=== PATIENT | female | born 1980 | race African-American/Black ===

== ENCOUNTER 2016-11-02 13:45 | Emergency (ER) | payer OTHER ==
[~2016-11-02] VITALS: Ht 175.3 cm; Wt 68.4 kg
[2016-11-02 14:53] LABS: BASO % 0.5 % (0.0-1.0); EOS # 0.2 K/mm3 (0.0-0.50); EOS % 3.1 % (0.0-3.0); LARGE UNSTAINED CELL # 0.1 K/mm3 (0.0-0.4); LARGE UNSTAINED CELL % 1.8 % (0.0-4.0); LYMPH # 1.8 K/mm3 (1.5-4.5); LYMPH % 32.1 % (24.0-44.0); MEAN CORPUSCULAR HEMOGLOBIN 27.6 pg (27.0-33.0); MEAN CORPUSCULAR HGB CONC 32.7 g/dl (32.0-36.5); MEAN CORPUSCULAR VOLUME 84.4 fl (80.0-96.0); MONO # 0.3 K/mm3 (0.0-0.8); MONO % 5.5 % (0.0-5.0); PLATELET COUNT, AUTOMATED 285 k/mm3 (150-450); RED CELL DISTRIBUTION WIDTH 12.9 % (11.5-14.5); WHITE BLOOD COUNT 5.2 K/mm3 (4.0-10.0)
[2016-11-02 15:05] LABS: ALBUMIN/GLOBULIN RATIO 1.05 (1.00-1.93); ALKALINE PHOSPHATASE 54 U/L (45-117); ALT/SGPT 14 U/L (12-78); ANION GAP 11 MEQ/L (8-16); AST/SGOT 10 U/L (15-37); BILIRUBIN,DIRECT 0.1 MG/DL (0.0-0.2); BILIRUBIN,TOTAL 0.3 MG/DL (0.2-1.0); BLOOD UREA NITROGEN 13 MG/DL (7-18); CALCIUM LEVEL 8.9 MG/DL (8.5-10.1); CARBON DIOXIDE LEVEL 23 MEQ/L (21-32); CHLORIDE LEVEL 106 MEQ/L (98-107); CREATININE FOR GFR 0.98 MG/DL (0.55-1.02); GLOMERULAR FILTRATION RATE > 60.0 (>60); GLUCOSE, FASTING 92 MG/DL (70-105); POTASSIUM SERUM 3.6 MEQ/L (3.5-5.1); SODIUM LEVEL 140 MEQ/L (136-145); TOTAL PROTEIN 7.8 GM/DL (6.4-8.2)
[2016-11-02 16:17] VITALS: BP 119/75
== END 2016-11-02 16:19 | disposition home or self-care (01) ==
LOC: M ED 13:45
DX: Z34.91 Encounter for supervision of normal pregnancy, unspecified, first trimester (principal)

== ENCOUNTER 2021-03-28 04:14 | Emergency (ER) | payer OTHER ==
[~2021-03-28] VITALS: Ht 170.2 cm; Wt 72.7 kg
[2021-03-28] MEDS ORDERED: KETOROLAC 30 MG/ML 1ML VIAL IV ONE (07:55)
[2021-03-28 08:37] LABS: BASO % 0.4 % (0.0-1.0); EOS # 0.1 10^3/uL (0.0-0.5); EOS % 1.3 % (0.0-3.0); HEMATOCRIT 36.2 % (36.0-47.0); HEMOGLOBIN 12.2 g/dl (12.0-15.5); LYMPH # 1.3 10^3/uL (1.5-5.0); LYMPH % 23.7 % (24.0-44.0); MEAN CORPUSCULAR HEMOGLOBIN 27.9 pg (27.0-33.0); MEAN CORPUSCULAR HGB CONC 33.7 g/dl (32.0-36.5); MEAN CORPUSCULAR VOLUME 82.6 fl (80.0-96.0); MONO % 18.5 % (2.0-8.0); NEUTROPHILS % 55.7 % (36.0-66.0); PLATELET COUNT, AUTOMATED 277 10^3/uL (150-450); RED BLOOD COUNT 4.38 10^6/uL (4.00-5.40); WHITE BLOOD COUNT 5.4 10^3/uL (4.0-10.0)
--- NOTE | 2021-03-28 08:41 | REP ---
INDICATION: Chest pain, cough COMPARISON: None. TECHNIQUE: PA and lateral. FINDINGS: The mediastinum and cardiac silhouette are normal. The lung marcelino are clear and without acute consolidation, effusion, or pneumothorax. The skeletal structures are intact and normal. IMPRESSION: No acute cardiopulmonary process. <Electronically signed by Obinna Sanchez > 03/28/21 0860
[2021-03-28 09:06] LABS: RSV AMPLIFICATION NEGATIVE (NEGATIVE)
[2021-03-28 13:25] VITALS: BP 151/91
--- NOTE | 2021-03-28 21:25 | ECGEPIP ---
[facility] - ED Test Date: 2021-03-28 Pat Name: ELVIN SNOW Department: Room: - Gender: Female Director Of Scientific Research: [birth year] : 1980 Requested By: LOREN VELASQUEZ Order Number: [id number] Reading MD: Shashank Chris Measurements Intervals [place] Rate: 58 P: -12 IA: 116 QRS: 20 QRSD: 76 T: -12 QT: 406 QTc: 398 Interpretive Statements Sinus bradycardia POOR R WAVE PROGRESSION NONSPECIFIC T WAVE ABNORMALITY(S) NO PRIORS FOR COMPARISON Electronically Signed on 03-28-2021 21:25:46 EST by Shashank Chris
== END 2021-03-28 13:27 | disposition home or self-care (01) ==
LOC: M ED 04:14
DX: R07.9 Chest pain, unspecified (principal); R06.02 Shortness of breath; R05.9 Cough, unspecified; U07.1 COVID-19
CPT/HCPCS: 71046; 80047; 81001; 84484; 84702; 85025; 87631; 93005; 96374; 99284; J1885